=== PATIENT | female | born 1950 | race Caucasian/White ===

== ENCOUNTER 2017-04-16 15:10 | Emergency (ER) | payer MEDICARE ==
[2009-08-11 11:13] VITALS: BMI 34.1
== END 2017-04-16 16:21 | disposition home or self-care (01) ==
LOC: D.ER 15:10
DX: M54.31 Sciatica, right side (principal); F41.9 Anxiety disorder, unspecified; E11.9 Type 2 diabetes mellitus without complications; I10 Essential (primary) hypertension

== ENCOUNTER 2017-05-13 17:25 | Emergency (ER) | payer MEDICARE ==
[2009-08-11 11:13] VITALS: BMI 34.1
[2017-05-13 18:34] LABS: BASOPHILS 0.2 % (0-2); HEMATOCRIT 40.8 % (36.0-48.0); HEMOGLOBIN 13.6 g/dL (12-16); IMMATURE GRANULOCYTES 0.2 % (0-5); MCH 28.9 pg (26.0-34.0); MCHC 33.3 g/dL (31.0-37.0); MCV 86.6 fL (80.0-100.0); MEAN PLATELET VOLUME 9.8 fL (7.4-10.4); MONOCYTES 6.1 % (2-11); NEUTROPHILS 58.5 % (40-80); RBC 4.71 10x6/uL (4.00-5.40); RDW 14.6 % (11.5-14.5); WBC 10.1 10x3/uL (4.8-10.8)
[2017-05-13 18:35] LABS: PLATELET COUNT 382 10x3/uL (130-400)
[2017-05-13 18:45] LABS: ALBUMIN 3.7 g/dL (3.4-5.0); ALKALINE PHOSPHATASE 81 U/L (46-116); ALT (SGPT) 19 U/L (10-68); BILIRUBIN - TOTAL 0.39 mg/dL (0.2-1.3); CALC OSMOLALITY 274 mosm/kg (275-300); CARBON DIOXIDE 21.2 mmol/L (21.0-32.0); CHLORIDE - SERUM 100 mmol/L (98-107); CREATININE - SERUM 1.1 mg/dL (0.6-1.3); GLUCOSE 200 mg/dL (74-106); POTASSIUM - SERUM 3.8 mmol/L (3.5-5.1); PROTEIN - SERUM 7.6 g/dL (6.4-8.2); SODIUM 134 mmol/L (136-145); UREA NITROGEN 16 mg/dL (7-18); eGFR NON AFRICAN AMERICAN 53 mL/min (90-120)
[2017-05-13 18:56] LABS: CHOL - HDL RATIO 4.1 ratio (2.3-4.1); CHOLESTEROL, TOTAL 241 mg/dL (0-200); CKMB 1.3 U/L (0.0-3.6); CREATINE KINASE 73 UL (21-215); HDL CHOLESTEROL 59 mg/dL (32-96); LDL CHOLESTEROL 110 mg/dL (0-100); LDL-HDL RATIO 1.9 ratio (1.5-3.5); TRIGLYCERIDE 360 mg/dL (30-200)
[2017-05-13 18:57] LABS: TROPONIN-I < 0.017 ng/mL (0.000-0.060)
== END 2017-05-13 22:59 | disposition home or self-care (01) ==
LOC: D.ER 17:25
PROVIDERS: Emergency Medicine
DX: R07.89 Other chest pain (principal); J44.9 Chronic obstructive pulmonary disease, unspecified; E11.9 Type 2 diabetes mellitus without complications; I10 Essential (primary) hypertension; R00.0 Tachycardia, unspecified

== ENCOUNTER 2017-06-30 18:22 | Emergency (ER) | payer MEDICARE ==
[2009-08-11 11:13] VITALS: BMI 34.1
== END 2017-06-30 20:06 | disposition home or self-care (01) ==
LOC: D.ER 18:22
DX: S40.011A Contusion of right shoulder, initial encounter (principal); S20.211A Contusion of right front wall of thorax, initial encounter; W06.XXXA Fall from bed, initial encounter; Y93.89 Activity, other specified; Y92.013 Bedroom of single-family (private) house as the place of occurrence of the external cause; J44.9 Chronic obstructive pulmonary disease, unspecified; I10 Essential (primary) hypertension; K58.9 Irritable bowel syndrome, unspecified; E11.9 Type 2 diabetes mellitus without complications

== ENCOUNTER 2017-09-25 18:41 | Emergency (ER) | payer MEDICARE ==
[2009-08-11 11:13] VITALS: BMI 34.1
== END 2017-09-25 21:25 | disposition home or self-care (01) ==
LOC: D.ER 18:41
DX: S40.011A Contusion of right shoulder, initial encounter (principal); X58.XXXA Exposure to other specified factors, initial encounter; Y93.89 Activity, other specified; Y92.89 Other specified places as the place of occurrence of the external cause; S83.91XA Sprain of unspecified site of right knee, initial encounter; I10 Essential (primary) hypertension; J44.9 Chronic obstructive pulmonary disease, unspecified

== ENCOUNTER 2017-09-29 12:34 | Emergency (ER) | payer MEDICARE ==
[2009-08-11 11:13] VITALS: BMI 34.1
[2017-09-29 14:19] LABS: BASOPHILS 0.2 % (0-2); EOSINOPHILS 5.4 % (0-7); HEMATOCRIT 40.5 % (36.0-48.0); HEMOGLOBIN 13.3 g/dL (12-16); IMMATURE GRANULOCYTES 0.2 % (0-5); MCHC 32.8 g/dL (31.0-37.0); MCV 88.2 fL (80.0-100.0); MEAN PLATELET VOLUME 10.2 fL (7.4-10.4); MONOCYTES 6.5 % (2-11); NEUTROPHILS 56.7 % (40-80); RBC 4.59 10x6/uL (4.00-5.40); WBC 8.2 10x3/uL (4.8-10.8)
[2017-09-29 14:27] LABS: PLATELET COUNT 227 10x3/uL (130-400)
[2017-09-29 15:25] LABS: ALBUMIN 3.5 g/dL (3.4-5.0); ALKALINE PHOSPHATASE 70 U/L (46-116); ALT (SGPT) 15 U/L (10-68); BILIRUBIN - TOTAL 0.21 mg/dL (0.2-1.3); CALC OSMOLALITY 278 mosm/kg (275-300); CALCIUM 8.8 mg/dL (8.5-10.1); CARBON DIOXIDE 28.8 mmol/L (21.0-32.0); CHLORIDE - SERUM 104 mmol/L (98-107); CREATININE - SERUM 0.5 mg/dL (0.6-1.3); POTASSIUM - SERUM 3.8 mmol/L (3.5-5.1); PROTEIN - SERUM 6.9 g/dL (6.4-8.2); SODIUM 141 mmol/L (136-145); UREA NITROGEN 10 mg/dL (7-18); eGFR NON AFRICAN AMERICAN > 90 mL/min (90-120)
[2017-09-29 15:34] LABS: GLUCOSE 89 mg/dL (74-106)
== END 2017-09-29 18:03 | disposition home or self-care (01) ==
LOC: D.ER 12:34
PROVIDERS: Emergency Medicine
DX: E86.0 Dehydration (principal); R42 Dizziness and giddiness; J44.9 Chronic obstructive pulmonary disease, unspecified; I10 Essential (primary) hypertension; E11.9 Type 2 diabetes mellitus without complications

== ENCOUNTER 2018-12-19 19:23 | Emergency (ER) | payer OTHER, MEDICAID ==
[~2018-12-19] VITALS: Ht 162.6 cm; Wt 75.0 kg
[2018-12-19 19:27] VITALS: Ht 162.6 cm; Wt 75.0 kg
[2018-12-19] MEDS ORDERED: ATIVAN1 MG PO (19:28)
[2018-12-19] MEDS ORDERED: PROTONIX40 MG (19:29)
[2018-12-19] MEDS ORDERED: THEO-24400 MG PO (19:29)
[2018-12-19] MEDS ORDERED: COMBIVENT RESPIM4 GM INH (19:29)
[2018-12-19] MEDS ORDERED: PAXIL20 MG PO (19:30)
[2018-12-19] MEDS ORDERED: GLUCOPHAGE500 MG PO (19:30)
[2018-12-19] MEDS ORDERED: GLUCOTROL ER2.5 MG PO (19:30)
[2018-12-19] MEDS ORDERED: ABILIFY10 MG PO (19:30)
[2018-12-19] MEDS ORDERED: LANTUS INSULIN10 ML SC (19:31)
[2018-12-19] MEDS ORDERED: HYDROCODON-ACE1 EA10 PO (19:31)
[2018-12-19 20:11] LABS: BASOPHILS 0.1 % (0-2); EOSINOPHILS 2.1 % (0-7); HEMATOCRIT 38.1 % (36.0-48.0); HEMOGLOBIN 13.2 g/dL (12-16); IMMATURE GRANULOCYTES 0.1 % (0-5); MCH 29.3 pg (26.0-34.0); MCHC 34.6 g/dL (31.0-37.0); MCV 84.7 fL (80.0-100.0); MEAN PLATELET VOLUME 10.8 fL (7.4-10.4); MONOCYTES 7.8 % (2-11); NEUTROPHILS 55.9 % (40-80); RDW 15.1 % (11.5-14.5); WBC 7.6 10x3/uL (4.8-10.8)
[2018-12-19 20:15] LABS: PLATELET COUNT 274 10x3/uL (130-400)
[2018-12-19 20:23] LABS: ALKALINE PHOSPHATASE 92 U/L (46-116); ALT (SGPT) 39 U/L (10-68); BILIRUBIN - TOTAL 0.32 mg/dL (0.2-1.3); CALC OSMOLALITY 276 mosm/kg (275-300); CALCIUM 9.6 mg/dL (8.5-10.1); CARBON DIOXIDE 26.3 mmol/L (21.0-32.0); CHLORIDE - SERUM 99 mmol/L (98-107); CREATININE - SERUM 0.8 mg/dL (0.6-1.3); GLUCOSE 145 mg/dL (74-106); POTASSIUM - SERUM 3.8 mmol/L (3.5-5.1); PROTEIN - SERUM 7.5 g/dL (6.4-8.2); SODIUM 137 mmol/L (136-145); UREA NITROGEN 12 mg/dL (7-18); eGFR NON AFRICAN AMERICAN 76 mL/min (90-120)
[2018-12-19 20:31] LABS: TROPONIN-I < 0.017 ng/mL (0.000-0.060)
[2018-12-19 21:31] VITALS: BP 142/89
== END 2018-12-19 21:31 | disposition home or self-care (01) ==
LOC: D.ER 19:23
PROVIDERS: Family Medicine
DX: R51 Headache (principal); E11.9 Type 2 diabetes mellitus without complications; I10 Essential (primary) hypertension

== ENCOUNTER 2019-02-25 05:01 | Emergency (ER) | payer OTHER, MEDICAID ==
[~2019-02-25] VITALS: Ht 162.6 cm; Wt 72.7 kg
[~2019-02-25 05:01] MED LIST: ABILIFY10 MG PO; ATIVAN1 MG PO; COMBIVENT RESPIM4 GM INH; GLUCOPHAGE500 MG PO; GLUCOTROL ER2.5 MG PO; HYDROCODON-ACE1 EA10 PO; LANTUS INSULIN10 ML SC; PAXIL20 MG PO; PROTONIX40 MG; THEO-24400 MG PO
[2019-02-25 05:02] VITALS: Ht 162.6 cm; Wt 72.7 kg
[2019-02-25 05:27] LABS: BASOPHILS 0.1 % (0-2); EOSINOPHILS 0.9 % (0-7); HEMATOCRIT 36.4 % (36.0-48.0); HEMOGLOBIN 12.1 g/dL (12-16); IMMATURE GRANULOCYTES 0.2 % (0-5); LYMPHOCYTES 15.6 % (15-50); MCH 28.9 pg (26.0-34.0); MCHC 33.2 g/dL (31.0-37.0); MCV 86.9 fL (80.0-100.0); MEAN PLATELET VOLUME 10.6 fL (7.4-10.4); MONOCYTES 5.6 % (2-11); NEUTROPHILS 77.6 % (40-80); PLATELET COUNT 289 10x3/uL (130-400); RBC 4.19 10x6/uL (4.00-5.40); RDW 14.8 % (11.5-14.5); WBC 15.8 10x3/uL (4.8-10.8)
[2019-02-25 06:02] LABS: ALBUMIN 3.8 g/dL (3.4-5.0); ALKALINE PHOSPHATASE 92 U/L (46-116); ALT (SGPT) 19 U/L (10-68); APTT 24.7 SECONDS (22.8-39.4); BILIRUBIN - TOTAL 0.23 mg/dL (0.2-1.3); CALC OSMOLALITY 293 mosm/kg (275-300); CALCIUM 9.5 mg/dL (8.5-10.1); CARBON DIOXIDE 31.6 mmol/L (21.0-32.0); CHLORIDE - SERUM 101 mmol/L (98-107); CKMB 1.4 U/L (0.0-3.6); CREATINE KINASE 142 UL (21-215); CREATININE - SERUM 0.9 mg/dL (0.6-1.3); GLUCOSE 186 mg/dL (74-106); INR 1.02 (0.85-1.17); POTASSIUM - SERUM 3.5 mmol/L (3.5-5.1); PRO BNP 146 pg/mL (0-125); PROTEIN - SERUM 7.1 g/dL (6.4-8.2); PROTIME 12.9 SECONDS (11.6-15.0); SODIUM 143 mmol/L (136-145); TROPONIN-I < 0.017 ng/mL (0.000-0.060); UREA NITROGEN 23 mg/dL (7-18); eGFR NON AFRICAN AMERICAN 66 mL/min (90-120)
[2019-02-25 07:11] LABS: COLOR YELLOW (YELLOW)
[2019-02-25 07:12] LABS: APPEARANCE CLEAR (CLEAR); BILIRUBIN NEGATIVE (NEGATIVE); GLUCOSE NEGATIVE (NEGATIVE); KETONE NEGATIVE (NEGATIVE); NITRITE NEGATIVE (NEGATIVE); PROTEIN NEGATIVE (NEGATIVE); SPECIFIC GRAVITY 1.025 (1.005-1.020); UROBILINOGEN NORMAL (NORMAL)
[2019-02-25 07:25] LABS: UDS - AMPHET NEGATIVE QUAL (NEGATIVE); UDS - BARB NEGATIVE QUAL (NEGATIVE); UDS - BENZO POSITIVE QUAL (NEGATIVE); UDS - COCAINE NEGATIVE QUAL (NEGATIVE); UDS - OPIATE POSITIVE QUAL (NEGATIVE); UDS - PCP NEGATIVE QUAL (NEGATIVE); UDS - THC NEGATIVE QUAL (NEGATIVE)
[2019-02-25] MEDS ORDERED: TORADOL10 MG PO (09:01)
[2019-02-25] MEDS ORDERED: LEVOFLOXACIN500 MG PO (09:01)
[2019-02-25 09:17] VITALS: BP 160/75
== END 2019-02-25 09:19 | disposition home or self-care (01) ==
LOC: D.ER 05:01
PROVIDERS: Emergency Medicine; Family Medicine
DX: R06.00 Dyspnea, unspecified (principal); T42.75XA Adverse effect of unspecified antiepileptic and sedative-hypnotic drugs, initial encounter; J40 Bronchitis, not specified as acute or chronic; E11.9 Type 2 diabetes mellitus without complications; I10 Essential (primary) hypertension; J44.9 Chronic obstructive pulmonary disease, unspecified